=== PATIENT | male | born 1980 | race Caucasian/White ===

== ENCOUNTER → 2021-01-21 | Outpatient (CLI) | payer SELFPAY ==
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
== END | disposition home or self-care (01) ==
LOC: RADUSWWP 07:08
PROVIDERS: ATTEND Nurse Practitioner Family
DX: S70.02XA Contusion of left hip, initial encounter (principal)

== ENCOUNTER 2024-02-18 07:51 | Emergency (ER) | payer SELFPAY ==
[2024-02-18] MEDS ORDERED: DEXAMETHASONE SOD PHOSPHATE 4 MG/ML 1 ML VIAL ONE (08:37)
[2024-02-18] MEDS ORDERED: diphenhydrAMINE 25 MG CAP ONE (08:37)
== END 2024-02-18 08:47 | disposition home or self-care (01) ==
LOC: EC 07:51
CPT/HCPCS: 96372; 99282